=== PATIENT | female | born 1930 | race Caucasian/White ===

== ENCOUNTER 2017-09-07 05:16 | Inpatient (IN) | payer MEDICARE, OTHER ==
[~2017-09-07] VITALS: Ht 170.2 cm; Wt 77.2 kg
[2017-09-07] VITALS (9 sets, daily range): BP systolic 139–185; BP diastolic 62–87; PULSE 59–73; RESP 16–23; TEMP 98–98.9; O2SAT 94–97
[2017-09-07] MEDS ORDERED: DIPHTH/TETANUS/ACEL PERTUSSIS (BOOSTER) 0.5 ML VIAL/PFS IM ONE (05:30)
[2017-09-07] MEDS ORDERED: FENO54TA PO (05:59)
[2017-09-07] MEDS ORDERED: PARO20TA2 PO (05:59)
[2017-09-07] MEDS ORDERED: DOCU100C15 PO (05:59)
[2017-09-07] MEDS ORDERED: TRAM50TA PO (05:59)
[2017-09-07] MEDS ORDERED: DIGO0.12 PO (05:59)
[2017-09-07] MEDS ORDERED: ROBISYP8 ×2 (05:59)
[2017-09-07] MEDS ORDERED: SITA25 PO (05:59)
[2017-09-07] MEDS ORDERED: ASCO500C (05:59)
[2017-09-07] MEDS ORDERED: COQ-30CA2 PO (05:59)
[2017-09-07] MEDS ORDERED: VITA250C3 CHEW (05:59)
[2017-09-07] MEDS ORDERED: VITACAP7 PO (05:59)
[2017-09-07] MEDS ORDERED: MULT-65 PO (05:59)
[2017-09-07] MEDS ORDERED: XARE15TA PO (05:59)
[2017-09-07] MEDS ORDERED: METO1TAB43 PO (05:59)
[2017-09-07] MEDS ORDERED: LUTE20CA PO (05:59)
[2017-09-07] MEDS ORDERED: LOSA50TA PO (05:59)
[2017-09-07] MEDS ORDERED: ATOR10TA15 PO (05:59)
[2017-09-07] MEDS ORDERED: VITA1000 PO (05:59)
[2017-09-07] MEDS ORDERED: MECL-62 PO (05:59)
[2017-09-07] MEDS ORDERED: MEMA28CA PO (05:59)
[2017-09-07] MEDS ORDERED: FOSA70TA PO (05:59)
[2017-09-07] MEDS ORDERED: LEVO100T5 PO (05:59)
[2017-09-07] MEDS ORDERED: NOVOINJ3 SQ ×2 (05:59)
[2017-09-07] MEDS ORDERED: TOBRO EACH EYE (05:59)
[2017-09-07] MEDS ORDERED: LEVEMIR SQ (05:59)
--- NOTE | 2017-09-07 05:59 | RADRPT ---
EXAM DATE/TIME: 09/07/2017 05:40 [facility] COMPARISON: No previous studies available for comparison. INDICATIONS : Trauma; fall. RADIATION DOSE: 30.73 CTDIvol (mGy) MEDICAL HISTORY : Hypertension. Dementia. SURGICAL HISTORY : Cholecystectomy. Hysterectomy. ENCOUNTER: Initial ACUITY: 1 day PAIN SCALE: 4/10 LOCATION: cranial TECHNIQUE: Multiple contiguous axial images were obtained of the head. Using automated exposure control and adj ustment of the mA and/or kV according to patient size, radiation dose was kept as low as reasonably a chievable to obtain optimal diagnostic quality images. DICOM format image data is available electro nically for review and comparison. FINDINGS: CEREBRUM: The ventricles, sulci, and basal cisterns are prominent, characteristic of moderately severe central cortical atrophy. There is good alexander-white initiation. No evidence of midline shift. There is a fo jadiel small hyperdensity in the left posterior parietal cortex, only seen on image #24, characteristic of a small cortical hemorrhage. No extra-axial fluid or blood. POSTERIOR FOSSA: The cerebellum and brainstem are intact. The 4th ventricle is midline. The cerebellopontine angle i s unremarkable. EXTRACRANIAL: The visualized portion of the orbits is intact. SKULL: The calvaria is intact. No evidence of skull fracture. CONCLUSION: 1. Solitary small cortical hemorrhage left mid convexity parietal cortex. 2. No skull fracture seen. Raul Porter MD on September 07, 2017 at 5:55 Board Certified Radiologist. This report was verified electronically.
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
--- NOTE | 2017-09-07 06:11 | RADRPT ---
EXAM DATE/TIME: 09/07/2017 05:43 [facility] COMPARISON: No previous studies available for comparison. INDICATIONS : Trauma; fall. RADIATION DOSE: 20.58 CTDIvol (mGy) MEDICAL HISTORY : Hypertension. Dementia. SURGICAL HISTORY : Cholecystectomy. Hysterectomy. ENCOUNTER: Initial ACUITY: 1 day PAIN SCALE: 5/10 LOCATION: Bilateral neck TECHNIQUE: Volumetric scanning of the cervical spine was performed. Multiplanar reconstructions in the sagittal, coronal and oblique axial planes were performed. Using automated exposure control and adjustment o f the mA and/or kV according to patient size, radiation dose was kept as low as reasonably achievable to obtain optimal diagnostic quality images. DICOM format image data is available electronically f or review and comparison. FINDINGS: There is straightening of the 7th osis. Body height is maintained. No evidence of spondylolisthesis . Calcification of posterior longitudinal ligament C3-C5. The posterior elements are in normal alig nment without evidence of locked or perched facets. There is advanced hypertrophic changes in the fa cet joints throughout the cervical spine. Atlantoaxial articulation is intact. C2-C3: No fracture seen. Mild bilateral neural foraminal stenosis. C3-C4: No fracture seen. Moderate bilateral bony neural foraminal stenosis. C4-C5: No fracture seen. Mild bilateral bony neural foraminal stenosis. C5-C6: No fracture seen. Mild bilateral bony neural foraminal stenosis. C6-C7: No fracture seen. Mild bilateral bony neural foraminal stenosis. C7-T1: No fracture seen. The bony neural foramina are patent. CONCLUSION: No evidence of compression deformity or spondylolisthesis. Moderate degenerative changes. Raul Porter MD on September 07, 2017 at 5:58 Board Certified Radiologist. This report was verified electronically.
[2017-09-07] MEDS ORDERED: SODIUM CHLORIDE 0.9% FLUSH 10 ML FLUSH IVF PRN (06:15)
[2017-09-07 06:58] LABS: AUTOMATED NEUTROPHIL # 7.5 TH/MM3 (1.8-7.7); BASOPHIL # 0.1 TH/MM3 (0-0.2); BASOPHIL % 0.8 % (0.0-2.0); EOSINOPHIL # 0.3 TH/MM3 (0-0.4); EOSINOPHIL % 2.4 % (0.0-4.0); HEMATOCRIT 42.1 % (35.0-46.0); HEMO FLAGS DIFF FINAL; LYMPH % 21.7 % (9.0-44.0); LYMPHOCYTE # 2.4 TH/MM3 (1.0-4.8); MEAN CELL VOLUME 91.1 FL (80.0-100.0); MEAN CORPUSCULAR HGB CONC 34.1 % (32.0-36.0); MONO % 8.2 % (0.0-8.0); NEUT % 66.9 % (16.0-70.0); PLATELET COUNT 179 TH/MM3 (150-450); RED BLOOD COUNT 4.63 MIL/MM3 (4.00-5.30); RED CELL DISTRIBUTION WIDTH 13.4 % (11.6-17.2); WHITE BLOOD COUNT 11.3 TH/MM3 (4.0-11.0)
[2017-09-07] MEDS: SODIUM CHLOR 0.9% 1000 ML INJ 1,000 ML IV SCH ×2 (07:02→18:57)
[2017-09-07] MEDS ORDERED: SENNOSIDES 8.6 MG TAB PO PRN (07:15)
[2017-09-07] MEDS ORDERED: RESP: ALBUTEROL 2.5 MG/IPRATROPIUM 0.5 MG NEB (PRN) INH (07:15)
[2017-09-07] MEDS ORDERED: BISACODYL 10 MG SUPP RECTAL PRN (07:15)
[2017-09-07] MEDS ORDERED: MAGNESIUM HYDROXIDE SUSP 30 ML CUP PO PRN (07:15)
[2017-09-07] MEDS ORDERED: ACETAMINOPHEN 325 MG TAB PO PRN (07:15)
[2017-09-07] MEDS ORDERED: LACTULOSE SYRUP 20 GM/30 ML CUP PO PRN (07:15)
[2017-09-07] MEDS ORDERED: ONDANSETRON HCL 4 MG/2 ML VIAL IV PUSH PRN (07:15)
[2017-09-07] MEDS ORDERED: SODIUM CHLORIDE 0.9% FLUSH 10 ML FLUSH IV FLUSH PRN (07:15)
[2017-09-07] MEDS ORDERED: MISCELLANEOUS NURSING INFORMATION XX SCH (07:15)
[2017-09-07] MEDS ORDERED: CHLORHEXIDINE GLUCONATE 2 % 1 PACK (2 CLOTHS) TOP PRN (07:15)
[2017-09-07 07:16] LABS: APTT (PATIENT) 25.2 SEC (24.3-30.1); INTERNATIONAL NORMALIZED RATIO 1.1 RATIO; PROTHROMBIN TIME - PATIENT 11.2 SEC (9.8-11.6)
[2017-09-07 07:32] LABS: BICARBONATE 26.3 MEQ/L (21.0-32.0)
[2017-09-07] MEDS: SODIUM CHLORIDE 0.9% FLUSH 10 ML FLUSH IV FLUSH SCH ×2 (09:00→19:45)
[2017-09-07] MEDS ORDERED: hydrALAZINE HCL 20 MG/ML VIAL ONE (09:42)
[2017-09-07] MEDS: DOCUSATE SODIUM 50 MG/SENNA 8.6 MG TAB PO SCH ×2 (09:51→19:45)
[2017-09-07] MEDS ORDERED: hydrALAZINE HCL 20 MG/ML VIAL IV PUSH ONE (10:15)
[2017-09-07] MEDS: LOSARTAN 50 MG TAB PO SCH ×2 (10:30→14:24)
[2017-09-07] MEDS ORDERED: [UNRECOGNIZED DRUG - OTHER] PO SCH (10:30)
[2017-09-07] MEDS ORDERED: traMADol HCL 50 MG TAB PO PRN (10:30)
[2017-09-07] MEDS: METOPROLOL SUCCINATE 50 MG EXTENDED RELEASE TAB PO SCH (10:30)
[2017-09-07] MEDS ORDERED: MECLIZINE HCL 25 MG TAB PO PRN (10:30)
[2017-09-07] MEDS ORDERED: MEMANTINE 28 MG PO SCH (10:30)
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
[2017-09-07] MEDS ORDERED: hydrALAZINE HCL 20 MG/ML VIAL IVP PRN (10:45)
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
[2017-09-07] MEDS: DIGOXIN 0.125 MG TAB PO SCH (14:24)
[2017-09-07] MEDS: LEVOTHYROXINE SODIUM 100 MCG TAB PO SCH (14:24)
[2017-09-07] MEDS: ATORVASTATIN 10 MG TAB PO SCH (19:45)
[2017-09-08] VITALS: BP 143/68; PULSE 74; RESP 18; TEMP 98.3; O2SAT 96
[2017-09-08 04:00] VITALS: BP 142/77; PULSE 78; RESP 18; TEMP 98; O2SAT 95
[2017-09-08] MEDS: CHLORHEXIDINE GLUCONATE 2 % 1 PACK (2 CLOTHS) TOP SCH (04:00)
[2017-09-08 06:03] LABS: AUTOMATED NEUTROPHIL # 6.3 TH/MM3 (1.8-7.7); BASOPHIL # 0.1 TH/MM3 (0-0.2); BASOPHIL % 0.6 % (0.0-2.0); EOSINOPHIL # 0.3 TH/MM3 (0-0.4); EOSINOPHIL % 2.8 % (0.0-4.0); HEMATOCRIT 38.3 % (35.0-46.0); HEMO FLAGS DIFF FINAL; LYMPH % 24.9 % (9.0-44.0); LYMPHOCYTE # 2.5 TH/MM3 (1.0-4.8); MEAN CELL VOLUME 90.9 FL (80.0-100.0); MEAN CORPUSCULAR HEMOGLOBIN 31.1 PG (27.0-34.0); MEAN CORPUSCULAR HGB CONC 34.2 % (32.0-36.0); MONO % 7.8 % (0.0-8.0); NEUT % 63.9 % (16.0-70.0); PLATELET COUNT 170 TH/MM3 (150-450); RED BLOOD COUNT 4.21 MIL/MM3 (4.00-5.30); RED CELL DISTRIBUTION WIDTH 13.8 % (11.6-17.2); WHITE BLOOD COUNT 9.9 TH/MM3 (4.0-11.0)
[2017-09-08] MEDS: LEVOTHYROXINE SODIUM 100 MCG TAB PO SCH (06:11)
[2017-09-08 06:30] LABS: POTASSIUM 3.7 MEQ/L (3.5-5.1)
[2017-09-08 06:44] LABS: DIGOXIN 0.7 NG/ML (0.8-2.0)
[2017-09-08] MEDS: SODIUM CHLOR 0.9% 1000 ML INJ 1,000 ML IV SCH ×2 (06:52→17:41)
[2017-09-08 08:00] VITALS: BP 182/79; PULSE 82; RESP 16; TEMP 97.9; O2SAT 97
[2017-09-08] MEDS ORDERED: GLUCAGON 1 MG/ML VIAL OTHER PRN (08:30)
[2017-09-08] MEDS ORDERED: DEXTROSE 50% IN WATER 50 ML VIAL(D50) IV PUSH PRN (08:30)
--- NOTE | 2017-09-08 08:39 | RADRPT ---
EXAM DATE/TIME: 09/08/2017 08:17 [facility] COMPARISON: CT BRAIN W/O CONTRAST, September 07, 2017, 5:40. INDICATIONS : Intracranial hemorrhage. RADIATION DOSE: 56.35 CTDIvol (mGy) MEDICAL HISTORY : Stroke. Hypothyroidism. Diabetes mellitus type 2. SURGICAL HISTORY : None. ENCOUNTER: Subsequent ACUITY: 1 day PAIN SCALE: 0/10 LOCATION: cranial TECHNIQUE: Multiple contiguous axial images were obtained of the head. Using automated exposure control and adj ustment of the mA and/or kV according to patient size, radiation dose was kept as low as reasonably a chievable to obtain optimal diagnostic quality images. DICOM format image data is available electro nically for review and comparison. FINDINGS: There is marked central and cortical atrophy with dilatation of ventricular and sulcal spaces. Areas of low-attenuation in the white matter. There is no parenchymal hemorrhage, acute infarction or mass lesion identified. There are no extra-axial fluid collections appreciated. The posterior fossa is unremarkable with midline fourth ventricle. The portion of the orbits and paranasal sinuses visualiz ed are unremarkable. CONCLUSION: 1. No acute intracranial abnormality. 2. No hemorrhage seen on current study. 3. Cerebral atrophy and chronic ischemic small vessel vasculopathy. Panchito Dowling MD on September 08, 2017 at 8:35 Board Certified Radiologist. This report was verified electronically.
[2017-09-08] MEDS ORDERED: COENZYME Q10 200 MG PO SCH (09:00)
[2017-09-08] MEDS: DOCUSATE SODIUM 50 MG/SENNA 8.6 MG TAB PO SCH ×2 (09:00→21:36)
[2017-09-08] MEDS ORDERED: NON-FORMULARY DRUG (Lutein 20 MG) PO SCH (09:00)
[2017-09-08] MEDS: DOCUSATE SODIUM 100 MG CAP PO SCH (09:00)
[2017-09-08] MEDS: SODIUM CHLORIDE 0.9% FLUSH 10 ML FLUSH IV FLUSH SCH ×2 (09:00→21:36)
[2017-09-08] MEDS: PARoxetine HCL 20 MG TAB PO SCH (09:30)
[2017-09-08] MEDS: LOSARTAN 50 MG TAB PO SCH (09:30)
[2017-09-08] MEDS: ASCORBIC ACID 500 MG TAB PO SCH (09:30)
[2017-09-08] MEDS: CHOLECALCIFEROL (VIT D3) 5000 UNIT CAP PO SCH (09:30)
[2017-09-08] MEDS: DIGOXIN 0.125 MG TAB PO SCH (09:30)
[2017-09-08] MEDS: VITAMIN B COMPLEX/VIT C TAB PO SCH (09:30)
[2017-09-08] MEDS: MULTIVITAMIN TAB PO SCH (09:30)
[2017-09-08] MEDS: METOPROLOL SUCCINATE 50 MG EXTENDED RELEASE TAB PO SCH (09:31)
[2017-09-08] MEDS: FENOFIBRATE 48 MG TAB PO SCH (09:56)
[2017-09-08] MEDS: INSULIN NovoLIN REGULAR SUPPLEMENTAL SCALE SQ SCH ×3 (11:41→21:35)
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
[2017-09-08] MEDS ORDERED: ENALAPRILAT 1.25 MG/ML VIAL IV PUSH PRN (12:00)
[2017-09-08 12:28] VITALS: BP 182/81; PULSE 67; RESP 16; TEMP 98.1; O2SAT 97
[2017-09-08 13:00] VITALS: BP 142/68
[2017-09-08] MEDS: TOBRAMYCIN 0.3%/DEXAMETHASONE 0.1% OPHT SUSP 5 ML BTL EACH EYE SCH (19:42)
[2017-09-08 20:00] VITALS: BP 131/70; PULSE 69; RESP 18; TEMP 98.2; O2SAT 95
[2017-09-08] MEDS: ATORVASTATIN 10 MG TAB PO SCH (21:36)
[2017-09-09] VITALS: BP 158/70; PULSE 70; RESP 20; TEMP 97.5; O2SAT 96
[2017-09-09 04:00] VITALS: BP 174/72; PULSE 72; RESP 18; TEMP 98.4; O2SAT 94
[2017-09-09] MEDS: CHLORHEXIDINE GLUCONATE 2 % 1 PACK (2 CLOTHS) TOP SCH (04:00)
[2017-09-09] MEDS: LEVOTHYROXINE SODIUM 100 MCG TAB PO SCH (06:02)
[2017-09-09] MEDS: SODIUM CHLOR 0.9% 1000 ML INJ 1,000 ML IV SCH (06:37)
[2017-09-09] MEDS: SODIUM CHLORIDE 0.9% FLUSH 10 ML FLUSH IV FLUSH SCH (07:34)
[2017-09-09] MEDS: INSULIN NovoLIN REGULAR SUPPLEMENTAL SCALE SQ SCH ×2 (07:34→12:37)
[2017-09-09 08:08] VITALS: BP 140/65; PULSE 64; RESP 20; TEMP 98.6; O2SAT 96
[2017-09-09] MEDS: MULTIVITAMIN TAB PO SCH (08:44)
[2017-09-09] MEDS: DOCUSATE SODIUM 50 MG/SENNA 8.6 MG TAB PO SCH (08:44)
[2017-09-09] MEDS: CHOLECALCIFEROL (VIT D3) 5000 UNIT CAP PO SCH (08:44)
[2017-09-09] MEDS: DIGOXIN 0.125 MG TAB PO SCH (08:44)
[2017-09-09] MEDS: FENOFIBRATE 48 MG TAB PO SCH (08:44)
[2017-09-09] MEDS: VITAMIN B COMPLEX/VIT C TAB PO SCH (08:44)
[2017-09-09] MEDS: DOCUSATE SODIUM 100 MG CAP PO SCH (08:44)
[2017-09-09] MEDS: ASCORBIC ACID 500 MG TAB PO SCH (08:44)
[2017-09-09] MEDS: LOSARTAN 50 MG TAB PO SCH (08:44)
[2017-09-09] MEDS: PARoxetine HCL 20 MG TAB PO SCH (08:44)
[2017-09-09] MEDS: METOPROLOL SUCCINATE 50 MG EXTENDED RELEASE TAB PO SCH (08:44)
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
[2017-09-09] MEDS: TOBRAMYCIN 0.3%/DEXAMETHASONE 0.1% OPHT SUSP 5 ML BTL EACH EYE SCH (11:51)
[2017-09-09 11:57] VITALS: BP 153/70; PULSE 66; RESP 20; TEMP 98.5; O2SAT 95
[2017-09-09 16:45] VITALS: BP 148/72; PULSE 66; RESP 20; TEMP 98.9; O2SAT 93
== END 2017-09-09 16:39 | DRG 86 ==
LOC: NEPC 05:16 → NEDA 07:01 → N03A 08:46 → N05A 20:32
PROVIDERS: ADMIT Hospitalist; ATTEND Hospitalist
PROC: 0JQ03ZZ Repair Scalp Subcutaneous Tissue and Fascia, Percutaneous Approach (ICD-10-PCS; principal; 2017-09-07)
DX: S06.350A Traumatic hemorrhage of left cerebrum without loss of consciousness, initial encounter (principal); N18.4 Chronic kidney disease, stage 4 (severe); E11.22 Type 2 diabetes mellitus with diabetic chronic kidney disease; F03.90 Unspecified dementia, unspecified severity, without behavioral disturbance, psychotic disturbance, mood disturbance, and anxiety; I12.9 Hypertensive chronic kidney disease with stage 1 through stage 4 chronic kidney disease, or unspecified chronic kidney disease; I48.91 Unspecified atrial fibrillation; E03.9 Hypothyroidism, unspecified; S01.01XA Laceration without foreign body of scalp, initial encounter; R40.2412 Glasgow coma scale score 13-15, at arrival to emergency department; E78.00 Pure hypercholesterolemia, unspecified; F32.9 Major depressive disorder, single episode, unspecified; F41.9 Anxiety disorder, unspecified; M81.0 Age-related osteoporosis without current pathological fracture; W01.10XA Fall on same level from slipping, tripping and stumbling with subsequent striking against unspecified object, initial encounter; Y92.89 Other specified places as the place of occurrence of the external cause; Z79.01 Long term (current) use of anticoagulants; Z79.4 Long term (current) use of insulin
CPT/HCPCS: 12001; 70450; 72125; 80048; 80162; 82948; 85025; 85610; 85730; 87641; 90471; 90715; J0360; J7030

== ENCOUNTER 2017-09-21 21:55 | Emergency (ER) | payer MEDICARE ==
[~2017-09-21] VITALS: Ht 167.6 cm; Wt 78.0 kg
[~2017-09-21 21:55] MED LIST: ASCO500C; ATOR10TA15 PO; COQ-30CA2 PO; DIGO0.12 PO; DOCU100C15 PO; FENO54TA PO; FOSA70TA PO; LEVEMIR SQ; LEVO100T5 PO; LOSA50TA PO; LUTE20CA PO; MECL-62 PO; MEMA28CA PO; METO1TAB43 PO; MULT-65 PO; NOVOINJ3 SQ; PARO20TA2 PO; SITA25 PO; TOBRO EACH EYE; TRAM50TA PO; VITA1000 PO; VITA250C3 CHEW; VITACAP7 PO
--- NOTE | 2017-09-21 22:06 | PD ---
HPI . IV access Chief Complaint: IV access Time Seen by Provider: 22:00 Travel History International Travel<30 days: No Contact w/Intl Traveler<30days: No History of Present Illness HPI This patient was sent to us from a local care home simply for IV access. She already has orders from the physician at the care home to receive IV fluids. They have reportedly attempted access multiple times without success. They subsequently sent her to us for IV access. PFSH Past Medical History Hx Anticoagulant Therapy: Yes Arthritis: No Asthma: No Autoimmune Disease: No Anxiety: Yes Depression: Yes Heart Rhythm Problems: No Cancer: No Cardiovascular Problems: No (Takes some medications unsure of why) High Cholesterol: Yes Congestive Heart Failure: No COPD: No Cerebrovascular Accident: No Dementia: Yes Diabetes: Yes Diminished Hearing: No Endocrine: Yes GERD: No Glaucoma: No Genitourinary: No Hepatitis: No Hiatal Hernia: No Hypertension: Yes Immune Disorder: No Kidney Stones: No Musculoskeletal: No Neurologic: No Psychiatric: No Reproductive: No Respiratory: No Myocardial Infarction: No Renal Failure: No Seizures: No Sleep Apnea: No Thyroid Disease: Yes (hypo) Ulcer: No Menopausal: Yes : 3 Para: 3 Past Surgical History Abdominal Surgery: Yes (Gallbladder removal) Cardiac Surgery: No Cholecystectomy: Yes Ear Surgery: No Endocrine Surgery: No Eye Surgery: No Genitourinary Surgery: No Gynecologic Surgery: Yes (hysterectomy) Hysterectomy: Yes Oral Surgery: No Thoracic Surgery: No Social History Alcohol Use: No Tobacco Use: No Substance Use: No Allergies-Medications (Allergen,Severity, Reaction): Coded Allergies: No Known Allergies (Unverified , 09/07/17) Reported Meds & Prescriptions Reported Meds & Active Scripts Active Reported Tramadol (Tramadol HCl) 50 Mg Tab 100 Mg PO Q6H PRN Docusate Sodium 100 Mg Cap 100 Mg PO DAILY Meclizine (Meclizine HCl) 25 Mg Tab 25 Mg PO Q6HR PRN Vitamin C (Ascorbic Acid) 500 Mg Capsule BID Vitamin C (Ascorbic Acid) 250 Mg Chew 500 Mg CHEW DAILY Vitamin D-1000 (Cholecalciferol) 1,000 Unit Tab 5,000 Units PO DAILY Tobradex Opth Drops (Tobramycin/Dexamethasone) 0.3-0.1 % Susp 1 Drop EACH EYE MON,WED,FRI Paroxetine (Paroxetine HCl) 20 Mg Tab 20 Mg PO DAILY Novolog Flexpen Inj (Insulin Aspart) 300 Unit/3 Ml Pen 12 Units SQ AC LUNCH Novolog Flexpen Inj (Insulin Aspart) 300 Unit/3 Ml Pen 10 Units SQ AC BREAKFAST Namenda Xr (Memantine) 28 Mg Caper 28 Mg PO DAILY Multi-Vitamin Daily (Multiple Vitamin) 1 Tab Tab 1 Tab PO DAILY Metoprolol Succinate ER 24 HR (Metoprolol Succinate) 100 Mg Tab 100 Mg PO DAILY Lutein 20 Mg Cap 20 Mg PO DAILY Losartan (Losartan Potassium) 50 Mg Tab 50 Mg PO DAILY Levothyroxine (Levothyroxine Sodium) 100 Mcg Tab 100 Mcg PO DAILY Levemir Inj (Insulin Detemir) 1,000 unit/ 10 ML Vial 40 Units SQ HS Do not mix with any other Insulin. Januvia (Sitagliptin Phosphate) 25 Mg Tab 25 Mg PO DAILY Fosamax (Alendronate Sodium) 70 Mg Tab 70 Mg PO Q7D Fenofibrate 54 Mg Tab 54 Mg PO DAILY Digoxin 0.125 Mg Tab 0.125 Mg PO DAILY Coq-10 (Coenzyme Q10 (Ubidecarenone)) 30 Mg Cap 200 Mg PO DAILY B Complex (B-Complex Vitamins) 1 Cap 1 Cap PO DAILY Atorvastatin (Atorvastatin Calcium) 10 Mg Tab 10 Mg PO HS Physical Exam Narrative GENERAL: Awake and alert. Sitting up on the EVAC stretcher in no distress. SKIN: Warm and dry. Good color and turgor. HEAD: Normocephalic/atraumatic. EYES: Pupils are equal. Extraocular movements are intact. ENT: Mucous membranes are pink and moist. NECK: Normal range of motion. CARDIOVASCULAR: Regular rate and rhythm. RESPIRATORY: Nonlabored respirations. MUSCULOSKELETAL: Atraumatic. NEUROLOGICAL: Nonfocal. PSYCHIATRIC: Appropriate mood and affect. MDM Medical Decision Making Medical Screen Exam Complete: Yes Emergency Medical Condition: Yes Differential Diagnosis Differential diagnosis includes but is not limited to difficult IV access, dehydration Narrative Course This patient presents to us for the sole reason of needing IV access. Diagnosis Primary Impression: Difficult intravenous access Disposition: 03 DISCHARGE TO SNF Condition: Stable Paola Young MD Sep 21, 2017 22:06
[2017-09-21 22:10] VITALS: BP 142/63; PULSE 66; RESP 14; TEMP 98.5; O2SAT 95
[2017-09-21 22:13] VITALS: BP 142/63; PULSE 66; RESP 14; O2SAT 95
[2017-09-21] MEDS ORDERED: XARE15TA PO (22:29)
== END 2017-09-21 22:47 ==
LOC: NEPD 21:55
DX: Z76.89 Persons encountering health services in other specified circumstances (principal)
CPT/HCPCS: 99282